=== PATIENT | male | born 1955 | race Caucasian/White ===

== ENCOUNTER 2021-07-08 10:51 | Outpatient (CLI) | payer MEDICARE ==
[2021-07-08] MEDS ORDERED: Iopamidol 300 61% 100 ML VIAL FS ONE (14:54)
== END 2021-07-08 10:52 | disposition home or self-care (01) ==
LOC: CSHCT 10:51
PROVIDERS: ATTEND Family Medicine
DX: R10.31 Right lower quadrant pain (principal); C78.7 Secondary malignant neoplasm of liver and intrahepatic bile duct; C77.2 Secondary and unspecified malignant neoplasm of intra-abdominal lymph nodes; K44.9 Diaphragmatic hernia without obstruction or gangrene; N20.2 Calculus of kidney with calculus of ureter; R18.8 Other ascites
CPT/HCPCS: 74177; Q9967